=== PATIENT | female | born 1965 | race Caucasian/White ===

== ENCOUNTER 2017-09-22 20:28 | Emergency (ER) | payer OTHER ==
[~2017-09-22] VITALS: Ht 157.5 cm; Wt 86.2 kg
[~2017-09-22 20:28] MED LIST: ACETAMINOPHEN-1 EAC1 PO; AMOXIL 875 MG875 M1 PO; CLEOCIN HCL300 MG PO; FLEXERIL PO; FLONASE16 GM NASAL; HYPERTENSION MED; IBUPROFEN 800800 M1 PO; IBUPROFEN 800800 MG PO; NORCO 5-325 TA1 EACH PO; ROBAXIN500 MG PO; TRAMADOL 50 MG50 MG PO; ULTRAM 50MG TAB50 MG PO
[2017-09-22] MEDS ORDERED: PRINIVIL20 M1 (20:38)
[2017-09-22] MEDS ORDERED: ACTICIN 5% CREA60 G1 TOP (21:37)
[2017-09-22 21:50] VITALS: BP 145/88
== END 2017-09-22 21:51 | disposition home or self-care (01) ==
LOC: M.ERS 20:28
DX: B86 Scabies (principal)

== ENCOUNTER 2018-06-10 21:45 | Emergency (ER) | payer OTHER ==
[~2018-06-10] VITALS: Ht 157.5 cm; Wt 101.1 kg
[~2018-06-10 21:45] MED LIST changes: +ACTICIN 5% CREA60 G1 TOP; +PRINIVIL20 M1
[2018-06-10 23:03] LABS: ABSOLUTE BASOPHILS 0.1 thou/uL (0.0-0.2); ABSOLUTE EOSINOPHILS 0.1 thou/uL (0.0-0.7); ABSOLUTE LYMPHOCYTES 2.4 thou/uL (0.8-5.3); ABSOLUTE MONOCYTES 0.6 thou/uL (0.0-1.2); BASOPHILS 1.2 %; EOSINOPHILS 1.3 %; HEMATOCRIT 40.6 % (37.0-47.0); MCH 32.9 pg (26.0-34.0); MCHC 34.6 g/dL (28.0-37.0); MCV 95.1 fL (80.0-100.0); MONOCYTES 7.5 %; MPV 8.1 fl. (7.2-11.1); NUCLEATED RBCS 0 /100WBC; PLATELET COUNT* 262 thou/uL (150-400); RBC 4.27 mil/uL (4.20-5.00); RDW-CV 12.3 % (10.5-14.5); WBC 8.2 thou/uL (4.0-11.0)
[2018-06-10 23:12] LABS: ANION GAP 7 mmol/L (7-16); BUN 14 mg/dL (7-18); CALCIUM 9.4 mg/dL (8.5-10.1); CHLORIDE 102 mmol/L (98-107); CO2 30 mmol/L (21-32); GLUCOSE 96 mg/dL (70-99); POTASSIUM 3.8 mmol/L (3.5-5.1); SODIUM 139 mmol/L (136-145)
[2018-06-10 23:14] LABS: APTT 26.6 Seconds (25.0-31.3); PROTIME 10.7 Seconds (9.20-11.50)
[2018-06-10 23:19] LABS: ALBUMIN 3.8 g/dL (3.4-5.0); ALKALINE PHOSPHATASE 83 U/L (46-116); SGOT 30 U/L (15-37); SGPT 37 U/L (30-65); TOTAL BILIRUBIN 0.8 mg/dL (<0.1-1.0); TOTAL PROTEIN 8.1 g/dL (6.4-8.2); TROPONIN-I LEVEL <0.06 ng/mL (<0.06)
[2018-06-10 23:22] VITALS: BP 201/103
== END 2018-06-11 00:25 | disposition still patient (30) ==
LOC: M.ERS 21:45
PROVIDERS: Emergency Medicine Emergency Medical Services
DX: S06.361A Traumatic hemorrhage of cerebrum, unspecified, with loss of consciousness of 30 minutes or less, initial encounter (principal); M25.552 Pain in left hip; I10 Essential (primary) hypertension; W00.0XXA Fall on same level due to ice and snow, initial encounter; Y93.89 Activity, other specified; Y92.89 Other specified places as the place of occurrence of the external cause; Y99.8 Other external cause status

== ENCOUNTER 2019-10-11 13:55 | Emergency (ER) | payer OTHER ==
[~2019-10-11] VITALS: Ht 160 cm; Wt 90.7 kg
[2019-10-11 14:50] LABS: ABSOLUTE BASOPHILS 0.1 thou/uL (0.0-0.2); ABSOLUTE MONOCYTES 0.4 thou/uL (0.0-1.2); ABSOLUTE NEUTROPHILS 4.8 thou/uL (1.6-8.1); BASOPHILS 0.8 %; EOSINOPHILS 0.6 %; HEMATOCRIT 39.7 % (37.0-47.0); HEMOGLOBIN 14.2 gm/dL (12.0-15.0); LYMPHOCYTES 27.4 %; MCH 34.5 pg (26.0-34.0); MCHC 35.9 g/dL (28.0-37.0); MCV 96.2 fL (80.0-100.0); MONOCYTES 6.1 %; MPV 8.4 fl. (7.2-11.1); NUCLEATED RBCS 0 /100WBC; PLATELET COUNT* 262 thou/uL (150-400); POLYS 65.1 %; RBC 4.12 mil/uL (4.20-5.00); RDW-CV 12.4 % (10.5-14.5); WBC 7.4 thou/uL (4.0-11.0)
[2019-10-11 14:56] LABS: CALCIUM 8.6 mg/dL (8.5-10.1); POTASSIUM 3.6 mmol/L (3.5-5.1)
[2019-10-11 15:08] LABS: ALBUMIN 3.8 g/dL (3.4-5.0); TOTAL BILIRUBIN 0.7 mg/dL (<0.1-1.0); TOTAL PROTEIN 8.3 g/dL (6.4-8.2)
[2019-10-11] MEDS ORDERED: CARAFATE 1 GM TA1 G1 PO (16:54)
[2019-10-11] MEDS ORDERED: OMEPRAZOLE 20 M20 M1 PO (16:54)
[2019-10-11 17:21] LABS: URINE BILIRUBIN NEGATIVE (Negative); URINE BLOOD 1+ (Negative); URINE CLARITY CLEAR; URINE COLOR YELLOW; URINE GLUCOSE-RANDOM NEGATIVE (Negative); URINE KETONES NEGATIVE (Negative); URINE LEUKOCYTES-REFLEX NEGATIVE (Negative); URINE NITRITE-REFLEX NEGATIVE (Negative); URINE PROTEIN NEGATIVE (Negative); URINE SPECIFIC GRAVITY 1.015 (1.005-1.030); URINE UROBILINOGEN 0.2 E.U./dl (0.2-1.0)
[2019-10-11 17:34] LABS: SQUAMOUS 0-3 Few /LPF (0-3); URINE WBC-REFLEX 0-5 Rare /HPF (0-5)
[2019-10-11 17:35] LABS: BACTERIA-REFLEX 1-9 Few /HPF (None Seen); CASTS None Seen /LPF (None Seen); CRYSTALS None Seen /LPF (None Seen); URINE RBC 3-10 Few /HPF (0-2)
[2019-10-11 17:47] VITALS: BP 131/83
--- NOTE | 2019-10-12 07:27 | EKG ---
[place] [address] ELECTROCARDIOGRAM REPORT Name: DEMETRI HUYNH Room: [facility]#: [id number] Admission: 10/11/19 Attend Phys: Discharge: 10/11/19 Date of : 67 Date of Service: 10/11/19 1359 Report #: [id number] THIS REPORT FOR: //name// [facility] ED Test Date: 2019-10-11 Test Time: 13:59:10 Pat Name: DEMETRI HUYNH Department: Room: Gender: Chain Pegger: [place] : 1965 Requested By: Lakia Ayoub Order Number: [id number] MD: Bony Hodges Measurements Intervals [place] Rate: 105 P: 36 [place]: 134 QRS: 40 QRSD: 78 T: 4 QT: 338 QTc: 447 Interpretive Statements Sinus tachycardia Borderline repolarization abnormality Baseline wander in lead(s) II,III,aVR,aVL,aVF,V2,V3,V4,V5 No previous ECG available for comparison Electronically Signed On 10-12-2019 7:26:14 CDT by Bony Hodges [email or web address] <ELECTRONICALLY SIGNED> By: Bony Hodges MD, FACC 10/12/19 0726 1359 1359 Bony Hodges MD, [facility] /EPI
== END 2019-10-11 17:47 | disposition home or self-care (01) ==
LOC: M.ERS 13:55
PROVIDERS: Personal Emergency Response Attendant
DX: R07.89 Other chest pain (principal); I10 Essential (primary) hypertension; Z98.890 Other specified postprocedural states

== ENCOUNTER 2020-02-07 18:29 | Emergency (ER) | payer OTHER ==
[~2020-02-07] VITALS: Ht 157.5 cm; Wt 90.7 kg
[~2020-02-07 18:29] MED LIST changes: +CARAFATE 1 GM TA1 G1 PO; +OMEPRAZOLE 20 M20 M1 PO
[2020-02-07] MEDS ORDERED: PHENERGAN 25 MG25 M1 PO (21:07)
[2020-02-07] MEDS ORDERED: BUTALB-APAP-CA1 EACH PO (21:07)
[2020-02-07] MEDS ORDERED: ZANAFLEX4 MG PO (21:07)
[2020-02-07 21:17] VITALS: BP 155/88
== END 2020-02-07 21:17 | disposition home or self-care (01) ==
LOC: M.ERS 18:29
DX: S39.012A Strain of muscle, fascia and tendon of lower back, initial encounter (principal); S16.1XXA Strain of muscle, fascia and tendon at neck level, initial encounter; S09.90XA Unspecified injury of head, initial encounter; I10 Essential (primary) hypertension; R07.89 Other chest pain; Z90.49 Acquired absence of other specified parts of digestive tract; Z98.890 Other specified postprocedural states; V89.2XXA Person injured in unspecified motor-vehicle accident, traffic, initial encounter; Y93.89 Activity, other specified; Y92.481 Parking lot as the place of occurrence of the external cause; Y99.8 Other external cause status